=== PATIENT | female | born 1985 | race Caucasian/White ===

== ENCOUNTER 2021-03-22 13:01 | Emergency (ER) | payer MEDICAID, SELFPAY ==
--- NOTE | 2021-03-22 13:02 | ECG_ITS ---
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 Measurements Intervals [place] Rate: 68 P: 52 MS: 128 QRS: 69 QRSD: 75 T: 44 QT: 378 QTc: 403 Interpretive Statements SINUS RHYTHM WITH MARKED SINUS ARRHYTHMIA No previous ECG available for comparison Electronically Signed On 03-22-2021 17:00:54 STATION OPERATOR by Jann Castrejon M.D. [id number]
[2021-03-22 13:11] VITALS: BP 113/64; PULSE 87; RESP 19; TEMP 36.6; O2SAT 95; BMI 24.9
[2021-03-22] MEDS: LORazepam 2 mg/mL INJ 1 mL IVP (13:44)
[2021-03-22 13:46] VITALS: BP 108/71; PULSE 85; RESP 18; O2SAT 97
--- NOTE | 2021-03-22 13:49 | PC.NURSE ---
At approximately 1325, pt has seizure like activity . Pt turns in bed, immediately stiffens, and begins to shake. During activity, pt will pull hand away from RN and squeeze intermittently squeeze RNs hand. Pt stops shaking and immediately asks, Where's Marian? This RN states that Marian is not here and pt begins to cry. ERP Mu notified of event and comes to bedside to assess pt.
[2021-03-22 13:53] LABS: Eosinophils # 0.1 10^3/uL (0.0-0.8); Hematocrit 35.7 % (37.0-47.0); Lymphocytes # 1.4 10^3/uL (0.8-4.8); Mean Corpuscular Volume 90.6 fl (81-99); Monocytes # 0.3 10^3/uL (0.2-0.9); Nucleated Red Blood Cells % 0 %; Red Blood Count 3.94 10^6/uL (4.1-5.3)
--- NOTE | 2021-03-22 13:56 | PC.PHAR ---
pt is from [facility]-medications entered are from the pts mar from [facility]
[2021-03-22 14:26] VITALS: BP 94/59; PULSE 81; RESP 16; O2SAT 95
[2021-03-22 14:38] LABS: Basophils % 0.5 %; Eosinophils % 3.5 %; Hemoglobin 11.7 g/dL (11.5-15.3); Lymphocytes % 36.1 %; Mean Corpuscular HGB Conc 32.8 g/dL (30.0-36.0); Mean Corpuscular Hemoglobin 29.7 pg (28.0-34.0); Mean Platelet Volume 11.7 fL (7.4-10.4); Monocytes % 7.8 %; Neutrophils # 2.08 10^3/uL (1.8-7.7); Neutrophils % 52.1 %; Platelet Count 136 10^3/cmm (130-400); Red Cell Distribution Width 13.5 % (12.1-15.1)
[2021-03-22 14:39] LABS: Slide Review Slide Review Perform
[2021-03-22 14:47] LABS: Alanine Aminotransferase 77 U/L (0-33); Albumin Level 3.7 g/dL (3.5-5.2); Alkaline Phosphatase 142 IU/L (35-105); Anion Gap 16.3 (5-19); Aspartate Amino Transferase 76 U/L (0-32); Blood Urea Nitrogen 14 mg/dL (6-20); Calcium 8.4 mg/dL (8.5-10.5); Carbon Dioxide 21 mmol/L (22-29); Chloride 105 mmol/L (98-107); Globulin 2.6 g/dL (1.3-4.6); Glomerular Filtration Rate 139.6 mL/min (90-130); Glucose 79 mg/dL (65-115); Lipase 17 U/L (13-60); Osmolality Calculated 285 mOsm/kg (285-295); Potassium 4.3 mmol/L (3.5-5.1); Sodium 138 mmol/L (136-145); Total Bilirubin 0.2 mg/dL (0.15-1.2); Total Protein 6.3 g/dL (6.6-8.7)
--- NOTE | 2021-03-22 14:51 | W.ED.GENADLT ---
HPI - General Adult General: Chief complaint: Seizure Stated complaint: seizures Time Seen by Provider: 03/22/21 13:02 History of Present Illness: HPI narrative: HPI: [35]yo patient w/ hx of seizure on keppra, BIBA from [facility] to the ED with with multiple episodes of seizures this AM with posticteral confusion. The incident was witnessed at rehab facility at which point EMS was called. En route, patient had another episode of tonic clonic movement. HDS without any signs of focal neurological deficits. On arrival, the patient is AAOx3, GCS of 15 and answering all questions. The patient denies any associated chest pain, shortness of breath, palpitations, or any focal pain in the arms and legs. Patients takes keppra daily. Onset: 2 hrs ago Duration: x3 episode Location: home Severity: moderate Review of Systems Narrative: Constitutional: No fever, no chills. HEENT: No vision changes CV: No chest pain, no palpitations PULM: No productive cough, no dyspnea. GI: No abdominal pain, no N/V/D. : No Dysuria MSKEL: No muscle pain SKIN: No new rashes, no lesions. NEURO: No headache, no focal weakness. + 1 episode of seizure HEME: No visible bruises PSYCH: Normal mood Physical Exam Narrative: EXAM NARRATIVE: Head: Atraumatic Eyes: PERRL, conjunctiva without injection, eyes tracking ENT: Mucous membrane moist NECK: Supple without lymphadenopathy LUNGS: LCTAB CV: RRR ABDOMEN: Soft, nontender in all quadrants, no guarding or rebound tenderness, no CVA or flank tenderness bilaterally EXTREMITY: Normal ROM SKIN: No rash or erythema NEURO: CN II-XII tested and intact. Sensation intact to sharp/dull differentiation in all extremities. Motor: Normal tone and bulk. No abnormal movements appreciated. No pronator drift. Strength tested and 5/5 in bilateral wrist flexion/extension, elbow flexion/extension, shoulder abduction, straight leg raise, knee flexion/extension, ankle dorsiflexion/plantarflexion. Patient ambulates with a steady gait. Coordination: Finger to nose and heel to albert testing intact bilaterally. Reflexes intact in the ankles, knees, and elbows bilaterally PSYCH: Cooperative mood and affect Course Vital Signs: Vital signs: Vital Signs Temperature 97.9 F 03/22/21 13:11 Pulse Rate 81 03/22/21 14:26 Respiratory Rate 16 03/22/21 14:26 Blood Pressure 94/59 03/22/21 14:26 Pulse Oximetry 95 03/22/21 14:26 MDM - General Adult MDM Narrative: Medical decision making narrative: [35]yo patient w/ known hx of seizure on keppra BIBA after epsiodes of seizure earlier today. Back to baseline on arrival, AAOX3 with non-focal neuro exam. HDS. Exam revealed no focal trauma/deformity/bruises.The episode of seizure was witnessed and without any trauma/injury to the head. No immunosuppression hx and without preceding fever. No history of alcohol abuse or suspicion for toxin ingestion. Hx of prior seizure likely breakthrough seizure in the setting of medication change/non-compliance. H No lips/tongue lacerations. No visible bowel/bladder incontinence Airway protected. No drooling. Sats > 95%. Unlikely to be stroke, neurogenic syncope, acute delirium, intracranial tumor/mass, intracranial bleed, SAH/subdural hematoma/epidural hematoma, meningitis, or intracranial abscess, or from alcohol withdrawal. Workup: CBC, BMP, Magnesium, EKG, HCG CT head (after seizure witnessed in the ED) EMS: 2mg of versed IV ED Interventions: 1g of keppra, PO challenge, serial reassessment EKG: No e/o STEMI. No evidence of Brugada?s sign, delta wave, epsilon wave, significantly prolonged QTc, or malignant arrhythmia. Lab findings: Electrolytes including K and Mg wnl. [6:30pm] On reassessment, patient back to baseline. In the ED, the patient received 1g of keppra in the ED. No other witnessed episodes of seizure while the patient was observed in the ED. Repeat neuro exam is non-focal. Patient tolerated PO in the ED and was able to ambulate without difficulties. 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 Disposition: Discharge. Patient is given instruction for follow-up with PCP and Neurology in the next 24-48 hours. Given seizure precautions including no driving, swimming, or bathing until the patient is fully evaluated by specialists. Lab Data: Labs: Lab Results 03/22/21 03/22/21 03/22/21 13:30 13:30 13:30 WBC 4.0 10^3/uL 10^3/ uL (4.0-10.0) RBC 3.94 10^6/uL L 10 ^6/uL (4.1-5.3) Hgb 11.7 g/dL g/dL (11.5-15.3) Hct 35.7 % L % (37.0-47.0) MCV 90.6 fl fl (81-99) MCH 29.7 pg pg (28.0-34.0) MCHC 32.8 g/dL g/dL (30.0-36.0) RDW 13.5 % % (12.1-15.1) Plt Count 136 10^3/cmm 10^3 /cmm (130-400) MPV 11.7 fL H fL (7.4-10.4) Neut % (Auto) 52.1 % % Lymph % (Auto) 36.1 % % [place] % (Auto) 7.8 % % Eos % (Auto) 3.5 % % Baso % (Auto) 0.5 % % Neut # (Auto) 2.08 10^3/uL 10^3 /uL (1.8-7.7) Lymph # (Auto) 1.4 10^3/uL 10^3/ uL (0.8-4.8) [place] # (Auto) 0.3 10^3/uL 10^3/ uL (0.2-0.9) Eos # (Auto) 0.1 10^3/uL 10^3/ uL (0.0-0.8) Baso # (Auto) 0.0 10^3/uL 10^3/ uL (0.0-0.1) Nucleated RBC % (a uto) 0 % % Nucleated RBCs # 0.0 /100WBC /100W BC Sodium 138 mmol/L mmol/L (136-145) Potassium 4.3 mmol/L mmol/L (3.5-5.1) Chloride 105 mmol/L mmol/L (98-107) Carbon Dioxide 21 mmol/L L mmol/ L (22-29) Anion Gap 16.3 (5-19) BUN 14 mg/dL mg/dL (6-20) Creatinine 0.5 mg/dL mg/dL (0.5-0.9) GFR Calculation 139.6 mL/min H mL /min (90-130) Glucose 79 mg/dL mg/dL (65-115) Calculated Osmolal ity 285 mOsm/kg mOsm/ kg (285-295) Calcium 8.4 mg/dL L mg/dL (8.5-10.5) Total Bilirubin 0.2 mg/dL mg/dL (0.15-1.2) AST 76 U/L H U/L (0-32) ALT 77 U/L H U/L (0-33) Alkaline Phosphata se 142 IU/L H IU/L (35-105) Total Protein 6.3 g/dL L g/dL (6.6-8.7) Albumin 3.7 g/dL g/dL (3.5-5.2) Globulin 2.6 g/dL g/dL (1.3-4.6) Lipase 17 U/L U/L (13-60) Prolactin Urine Color Urine Appearance Urine pH Ur Specific Gravit y Urine Protein Urine Glucose (UA) Urine Ketones Urine Blood Urine Nitrate Urine Bilirubin Urine Urobilinogen Ur Leukocyte Shayna ase Urine HCG, Qual Negative (Negative) 03/22/21 03/22/21 13:30 15:27 WBC RBC Hgb Hct MCV MCH MCHC RDW Plt Count MPV Neut % (Auto) Lymph % (Auto) [place] % (Auto) Eos % (Auto) Baso % (Auto) Neut # (Auto) Lymph # (Auto) [place] # (Auto) Eos # (Auto) Baso # (Auto) Nucleated RBC % (a uto) Nucleated RBCs # Sodium Potassium Chloride Carbon Dioxide Anion Gap BUN Creatinine GFR Calculation Glucose Calculated Osmolal ity Calcium Total Bilirubin AST ALT Alkaline Phosphata se Total Protein Albumin Globulin Lipase Prolactin 24.24 ng/mL H ng/ mL (4.8-23.3) Urine Color Straw (Yellow) Urine Appearance Clear (CLEAR) Urine pH 7 (5-7) Ur Specific Gravit y 1.005 (1.005-1.030) Urine Protein Neg (Negative) Urine Glucose (UA) Norm (Normal) Urine Ketones Negative (Negative) Urine Blood Neg (Negative) Urine Nitrate Negative (Negative) Urine Bilirubin Neg (Negative) Urine Urobilinogen Norm mg/dL mg/dL (Negative) Ur Leukocyte Shayna ase Negative (Negative) Urine HCG, Qual Imaging Data^: Other Imaging: Radiologist's impression: [id number] [place], [place] [id number] Scan ReportSigned Patient: Norma Andrade #: [id number]: 1985Acct#:[id number]/Sex: 35 / FADM Date: 03/22/21Loc: ERRoom/Bed:Attending Dr: Ordering Provider/Ordering MD: Evita Dunn MD Date of Service: 03/22/21 Procedure(s): CT head wo con* [id number] Accession Number(s): [id number] Report Number: [id number] PROCEDURE INFORMATION: Exam: CT Head Without Contrast Exam date and time: 03/22/2021 3:45 PM Age: 35 years old Clinical indication: Condition or disease; Convulsions or seizures; Additional info: Eval brain bleed TECHNIQUE: Imaging protocol: Computed tomography of the head without contrast. Radiation optimization: All CT scans at this facility use at least one of these dose optimization techniques: automated exposure control; mA and/or kV adjustment per patient size (includes targeted exams where dose is matched to clinical indication); or iterative reconstruction. COMPARISON: No relevant prior studies available. RADIATION DOSE METRICS: Total DLP (mGy-cm): 862.81 FINDINGS: Brain: Normal. No hemorrhage. Unremarkable white matter. No mass effect. Cerebral ventricles: No ventriculomegaly. Paranasal sinuses: Visualized sinuses are unremarkable. No fluid levels. Mastoid air cells: Visualized mastoid air cells are well aerated. Bones/joints: Unremarkable. No acute fracture. Soft tissues: Unremarkable. CT/CT head wo con* [id number] IMPRESSION: No acute intracranial abnormality. Dictated By:Farhan Feldman DOSigned By:Farhan Feldman DOSigned Date/Time:03/22/21 1659 Discharge Plan Discharge Patient Disposition: Home Clinical Impression: Seizure Condition: Stable Prescriptions: No Action doxepin 50 mg Capsule 50 mg PO BEDTIME PRN (Reason: Sleep) RF: 0 clonidine HCl 0.1 mg Tablet 0.1 mg PO BEDTIME@21 PRN (Reason: Sleep) RF: 0 Tylenol Ex Str Rapid Release 500 mg Tablet 1,000 mg PO Q4H PRN (Reason: Pain) RF: 0 lamotrigine 25 mg Tablet 25 mg PO BID@ RF: 0 baclofen 10 mg Tablet 10 mg PO TID PRN (Reason: Muscle Spasm) RF: 0 mirtazapine 30 mg Tablet 30 mg PO BEDTIME@ RF: 0 ibuprofen 200 mg Tablet 400 mg PO Q4H PRN (Reason: Pain) RF: 0 levetiracetam 750 mg Tablet 750 mg PO BID@ RF: 0 Discharge Orders: Discharge ED (Routine); Ordered 03/22/21 Ordered By: Evita Dunn Discharge Diet: Advance as tolerated Discharge Activity: Resume usual activity Patient Instructions: Epilepsy (ED) Activity Restrictions/Additional Instructions: Please come back to the emergency room for any more breakthrough episodes of seizure. Come back if any weakness in her arms, drooling, difficulty speaking, any neurological symptoms. Please do not swim bathe or drive a vehicle unattended. Coding Level of Care Code ED Electrical Manufacturing Technician for Julian Saucedo
[2021-03-22] MEDS: ketorolac 30 mg/mL INJ IVP (15:23)
[2021-03-22] MEDS: acetaminophen 500 mg Tablet 1000 MG PO (15:23)
[2021-03-22 15:32] LABS: Prolactin 24.24 ng/mL (4.8-23.3)
--- NOTE | 2021-03-22 15:45 | CTR_ITS ---
PROCEDURE INFORMATION: Exam: CT Head Without Contrast Exam date and time: 03/22/2021 3:45 PM Age: 35 years old Clinical indication: Condition or disease; Convulsions or seizures; Additional info: Eval brain bleed TECHNIQUE: Imaging protocol: Computed tomography of the head without contrast. Radiation optimization: All CT scans at this facility use at least one of these dose optimization techniques: automated exposure control; mA and/or kV adjustment per patient size (includes targeted exams where dose is matched to clinical indication); or iterative reconstruction. COMPARISON: No relevant prior studies available. RADIATION DOSE METRICS: Total DLP (mGy-cm): 862.81 FINDINGS: Brain: Normal. No hemorrhage. Unremarkable white matter. No mass effect. Cerebral ventricles: No ventriculomegaly. Paranasal sinuses: Visualized sinuses are unremarkable. No fluid levels. Mastoid air cells: Visualized mastoid air cells are well aerated. Bones/joints: Unremarkable. No acute fracture. Soft tissues: Unremarkable. CT/CT head wo con* [id number] IMPRESSION: No acute intracranial abnormality.
[2021-03-22 15:46] LABS: Add Urine Microscopic? NO; Charge for UA Resulting for Rev
[2021-03-22 16:28] LABS: Bilirubin Urine Neg (Negative); Blood Urine Neg (Negative); Glucose Urine UA Norm (Normal); Ketones Urine Negative (Negative); Leukocyte Esterase Urine Negative (Negative); Nitrate Urine Negative (Negative); Protein Urine Neg (Negative); Specific Gravity, Urine 1.005 (1.005-1.030); Urine Appearance Clear (CLEAR); Urine Color Straw (Yellow); Urobilinogen Urine Norm (Negative); pH Urine 7 (5-7)
--- NOTE | 2021-03-23 09:19 | DCPLANNER ---
multimedia services manager had message to schedule a follow up appointment for patient with Dr. Robbins. multimedia services manager emailed patients information to the neurology clinic. Patients information will be printed and reviewed. Clinic will call patient with appointment information.
--- NOTE | 2021-03-25 07:25 | DCPLANNER ---
Addendum entered by Lesil Delvalle 05/20/21 15:16: Patient had a follow up appointment scheduled for 05.04.[address] Nguyen office - patient did not attend appointment. Original Note: Patient has a follow up appointment scheduled for Monday, May 04, 2020 at 10:[address] Robbins. Clinic will call patient with appointment information.
== END 2021-03-22 18:59 | disposition home or self-care (01) ==
PROVIDERS: Emergency Provider Emergency Medicine
DX: R56.9 Unspecified convulsions (principal)
CPT/HCPCS: 70450; 80053; 81003; 81025; 83690; 84146; 85025; 93005; 96365; 96375; 99284; J1885; J1953; J2060

== ENCOUNTER 2021-03-24 18:51 | Emergency (ER) | payer MEDICAID, SELFPAY ==
--- NOTE | 2021-03-24 19:02 | W.ED.SEIZURE ---
HPI - Seizure General: Chief Complaint: Seizure Stated Complaint: SEIZURES Time Seen by Provider: 03/24/21 19:02 Source: EMS Mode of arrival: EMS Limitations: altered mental status History of Present Illness: HPI Narrative: Ms. Andrade is a 35-year-old lady with reported history of seizures who presents to the emergency department due to seizure activity. She is currently staying at [facility] and gets her antiepileptic medications prescribed by [facility] behavioral health. History is somewhat limited by patient's postictal status. She reportedly has a an appointment with neurology on May 04 however prior evaluation of seizures is somewhat unclear. She has reportedly had multiple witnessed tonic-clonic seizures lasting approximately 30 seconds each today. She did lose continence of urine. This was preceded by her walking to the nurses desk and reporting an ill feeling. She was seen on the for similar episodes and at that time received a Keppra load. Other specific changes in health, exacerbating, or alleviating factors are not identified or available. Seizure History: Yes Review of Systems General: Reports: ROS unobtainable due to mental status Physical Exam Narrative: EXAM NARRATIVE: GENERAL/CONSTITUTIONAL -mildly ill-appearing. Postictal Eyes - PERRL, no conjunctival injection ENMT - Atraumatic external nose and ears. Moist mucous membranes NECK - supple. trachea midline CARDIOVASCULAR -tachycardic rate and regular rhythm. RESPIRATORY -clear to auscultation bilaterally. ABDOMEN/GI - Nontender/Nondistended. MSK - Extremities without obvious deformity or tenderness to palpation SKIN - Warm, Dry NEURO -postictal. Appears to move all extremities. Procedures EJ/Peripheral Line Arm R: Time Out Performed: No (Not indicated for peripheral IV insertion) Skin Cleansed in Sterile Fashion: Yes (Standard precautions for peripheral IV insertion) Size (gauge): 18 IV Secured and Dressing Applied: Yes Patient Tolerated Procedure: well Additional Comments: Ultrasound-guided Course ED course: - Patient was seen and evaluated by me at bedside - Patient placed on cardiac monitors, IV access obtained - Initial evaluation notable for postictal as noted above - Labs notable for no leukocytosis. Normal hemoglobin. Metabolic panel without acute derangement to explain patient's symptoms, mild transaminitis of unclear etiology. The prolactin level is mildly elevated. - Patient had CT head performed on 03/22/2021. I have reviewed this. There is nothing in clinical reported history that leads me to believe that repeat imaging is warranted on this patient at this time. - Upon serial reexamination after treatment the patient was improved. She was ambulatory and talkative without recurrence of seizures. She tolerated p.o. intake. - I did receive outside records from [facility], she had a hospitalization recently. It appears at that time she had video EEG with episodes that did not correlate with EEG findings. However, given elevated prolactin, she may still have combination of both epileptiform and nonepileptiform events. - Based on patient history, evaluation, labs, and imaging as interpreted the most likely cause of the patient's condition is seizure of unclear etiology. -I did discuss the case with neurology on-call, unfortunately at that time or medication list was not accurate, she initially was reported on JUN to be taking 1000 mg once daily of Keppra. Neurology recommended increasing this to 1500. However, clarification with the patient's facility is that she takes 1000 mg twice daily. She likely needs up titration further however in review of recommendations I believe that a 500 mg increase per week is appropriate, as such I will write the patient for prescription for 500 mg with instructions to take 1 g in the morning and 1500 mg at night. She does have a appointment with neurology scheduled. - The results of ED evaluation were discussed with the patient including prescriptions and/or symptomatic cares (if applicable) including appropriate and responsible use, followup plan, and return precautions. The patient verbalized understanding and felt safe for discharge. - Patient discharged in satisfactory condition. Vital Signs: Vital signs: Vital Signs Temperature 97.1 F L 03/24/21 22:04 Pulse Rate 84 03/25/21 01:10 Respiratory Rate 18 03/25/21 00:25 Blood Pressure 112/74 03/25/21 00:25 Pulse Oximetry 97 03/25/21 00:25 MDM - Seizure Medical Records: Attestation: I reviewed the patient's medical records. Lab Data: Attestation: I reviewed the patient's lab results. Labs: Lab Results 03/24/21 03/24/21 03/24/21 19:18 19:18 19:18 WBC 5.1 10^3/uL 10^3/ uL (4.0-10.0) RBC 4.06 10^6/uL L 10 ^6/uL (4.1-5.3) Hgb 12.1 g/dL g/dL (11.5-15.3) Hct 36.6 % L % (37.0-47.0) MCV 90.1 fl fl (81-99) MCH 29.8 pg pg (28.0-34.0) MCHC 33.1 g/dL g/dL (30.0-36.0) RDW 13.3 % % (12.1-15.1) Plt Count 154 10^3/cmm 10^3 /cmm (130-400) MPV 12.0 fL H fL (7.4-10.4) Neut % (Auto) 42.4 % % Lymph % (Auto) 44.1 % % [place] % (Auto) 7.6 % % Eos % (Auto) 5.1 % % Baso % (Auto) 0.4 % % Neut # (Auto) 2.16 10^3/uL 10^3 /uL (1.8-7.7) Lymph # (Auto) 2.3 10^3/uL 10^3/ uL (0.8-4.8) [place] # (Auto) 0.4 10^3/uL 10^3/ uL (0.2-0.9) Eos # (Auto) 0.3 10^3/uL 10^3/ uL (0.0-0.8) Baso # (Auto) 0.0 10^3/uL 10^3/ uL (0.0-0.1) Nucleated RBC % (a uto) 0 % % Nucleated RBCs # 0.0 /100WBC /100W BC Specimen Type Sample Site ABG pH ABG pCO2 ABG pO2 ABG HCO3 ABG Base Excess Jorge Test Hematocrit O2 Delivery Device Instructional Coordinator ID Sodium 138 mmol/L mmol/L (136-145) Potassium 4.2 mmol/L mmol/L (3.5-5.1) Chloride 103 mmol/L mmol/L (98-107) Carbon Dioxide 23 mmol/L mmol/L (22-29) Anion Gap 16.2 (5-19) BUN 13 mg/dL mg/dL (6-20) Creatinine 0.7 mg/dL mg/dL (0.5-0.9) GFR Calculation 94.7 mL/min mL/mi n (90-130) Glucose 82 mg/dL mg/dL (65-115) Calculated Osmolal ity 285 mOsm/kg mOsm/ kg (285-295) Calcium 8.4 mg/dL L mg/dL (8.5-10.5) Magnesium 1.5 mg/dL L mg/dL (1.7-2.3) Total Bilirubin 0.2 mg/dL mg/dL (0.15-1.2) AST 47 U/L H U/L (0-32) ALT 63 U/L H U/L (0-33) Alkaline Phosphata se 138 IU/L H IU/L (35-105) Total Protein 6.8 g/dL g/dL (6.6-8.7) Albumin 3.8 g/dL g/dL (3.5-5.2) Globulin 3.0 g/dL g/dL (1.3-4.6) TSH 6.33 uIU/mL H uIU /mL (0.27-4.20) Free T4 Prolactin 35.45 ng/mL H ng/ mL (4.8-23.3) HCG, Qual Urine Color Urine Appearance Urine pH Ur Specific Gravit y Urine Protein Urine Glucose (UA) Urine Ketones Urine Blood Urine Nitrate Urine Bilirubin Urine Urobilinogen Ur Leukocyte Shayna ase Salicylates < 0.3 mg/dL L mg/ dL (3-10) Urine Opiates Scre en Acetaminophen < 5.0 ug/mL L ug/ mL (10-30) Ur Barbiturates Sc reen Ur Phencyclidine S crn Ur Amphetamines Sc reen U Benzodiazepines Scrn Urine Cocaine Scre en U Marijuana (THC) Screen Ethyl Alcohol < 10 mg/dL mg/dL (0-10) 03/24/21 03/24/21 03/24/21 19:18 19:38 21:30 WBC RBC Hgb Hct MCV MCH MCHC RDW Plt Count MPV Neut % (Auto) Lymph % (Auto) [place] % (Auto) Eos % (Auto) Baso % (Auto) Neut # (Auto) Lymph # (Auto) [place] # (Auto) Eos # (Auto) Baso # (Auto) Nucleated RBC % (a uto) Nucleated RBCs # Specimen Type Arterial Sample Site Radial, right ABG pH 7.36 (7.35-7.45) ABG pCO2 46.4 mmHg H mmHg (35-45) ABG pO2 54.5 mmHg L mmHg (80.0-100.0) ABG HCO3 26.0 mmol/L mmol/ L (22-26) ABG Base Excess 0.2 mmol/L mmol/L (-2.0-2.0) Jorge Test Pos Hematocrit 35.1 % L % (37-47) O2 Delivery Device Room air Instructional Coordinator ID Buttr Sodium Potassium Chloride Carbon Dioxide Anion Gap BUN Creatinine GFR Calculation Glucose Calculated Osmolal ity Calcium Magnesium Total Bilirubin AST ALT Alkaline Phosphata se Total Protein Albumin Globulin TSH Free T4 0.90 ng/dL ng/dL (0.82-1.77) Prolactin HCG, Qual Negative (Negative) Urine Color Urine Appearance Urine pH Ur Specific Gravit y Urine Protein Urine Glucose (UA) Urine Ketones Urine Blood Urine Nitrate Urine Bilirubin Urine Urobilinogen Ur Leukocyte Shayna ase Salicylates Urine Opiates Scre en Acetaminophen Ur Barbiturates Sc reen Ur Phencyclidine S crn Ur Amphetamines Sc reen U Benzodiazepines Scrn Urine Cocaine Scre en U Marijuana (THC) Screen Ethyl Alcohol 03/24/21 03/24/21 21:30 21:30 WBC RBC Hgb Hct MCV MCH MCHC RDW Plt Count MPV Neut % (Auto) Lymph % (Auto) [place] % (Auto) Eos % (Auto) Baso % (Auto) Neut # (Auto) Lymph # (Auto) [place] # (Auto) Eos # (Auto) Baso # (Auto) Nucleated RBC % (a uto) Nucleated RBCs # Specimen Type Sample Site ABG pH ABG pCO2 ABG pO2 ABG HCO3 ABG Base Excess Jorge Test Hematocrit O2 Delivery Device Instructional Coordinator ID Sodium Potassium Chloride Carbon Dioxide Anion Gap BUN Creatinine GFR Calculation Glucose Calculated Osmolal ity Calcium Magnesium Total Bilirubin AST ALT Alkaline Phosphata se Total Protein Albumin Globulin TSH Free T4 Prolactin HCG, Qual Urine Color Yellow (Yellow) Urine Appearance Clear (CLEAR) Urine pH 6 (5-7) Ur Specific Gravit y 1.015 (1.005-1.030) Urine Protein Neg (Negative) Urine Glucose (UA) Norm (Normal) Urine Ketones Negative (Negative) Urine Blood Neg (Negative) Urine Nitrate Negative (Negative) Urine Bilirubin Neg (Negative) Urine Urobilinogen Norm mg/dL mg/dL (Negative) Ur Leukocyte Shayan ase Negative (Negative) Salicylates Urine Opiates Scre en Negative ng/mL ng /mL (Negative) Acetaminophen Ur Barbiturates Sc reen Negative ng/mL ng /mL (Negative) Ur Phencyclidine S crn Negative ng/mL ng /mL (Negative) Ur Amphetamines Sc reen Negative ng/mL ng /mL (Negative) U Benzodiazepines Scrn Negative ng/mL ng /mL (Negative) Urine Cocaine Scre en Negative ng/mL ng /mL (Negative) U Marijuana (THC) Screen Negative ng/mL ng /mL (Negative) Ethyl Alcohol EKG Data^: EKG 1: Attestation: I personally reviewed and interpreted this EKG as follows: EKG interpretation date: 03/24/21 EKG interpretation time: 19:45 Interpretation: Twelve-lead EKG shows a regular rhythm at a rate of 101. MN interval 128, QRS duration 80, QTc 406. Normal axis. Interpretation: Sinus tachycardia. Discharge Plan Discharge Patient Disposition: Home Clinical Impression: Seizure Condition: Stable Prescriptions: New Keppra 500 mg tablet 500 mg PO .qhs Qty: 60 RF: 0 Discontinued levetiracetam 750 mg Tablet 750 mg PO BID@ RF: 0 No Action doxepin 50 mg Capsule 50 mg PO BEDTIME PRN (Reason: Sleep) RF: 0 clonidine HCl 0.1 mg Tablet 0.1 mg PO BEDTIME@21 PRN (Reason: Sleep) RF: 0 Tylenol Ex Str Rapid Release 500 mg Tablet 1,000 mg PO Q4H PRN (Reason: Pain) RF: 0 lamotrigine 25 mg Tablet 25 mg PO BID@ RF: 0 baclofen 10 mg Tablet 10 mg PO TID PRN (Reason: Muscle Spasm) RF: 0 mirtazapine 30 mg Tablet 30 mg PO BEDTIME@21 RF: 0 ibuprofen 200 mg Tablet 400 mg PO Q4H PRN (Reason: Pain) RF: 0 Discharge Orders: Discharge ED (Routine); Ordered 03/25/21 Ordered By: Silvio Mejia Discharge Diet: Usual diet Discharge Activity: Limit activity as instructed Patient Instructions: Epilepsy (ED), Recurrent Seizures in Adults (ED) Activity Restrictions/Additional Instructions: Thank you for visiting the emergency department. You were seen and evaluated for seizure. The exact cause of your seizures is unclear. However, based on history you likely need an increase in your Keppra. Per turning leaf you currently take 1000 mg twice daily, please change this to 1000 mg in the morning and 1500 mg at night. Please follow-up with your primary care provider. Please follow-up with neurology as scheduled. Return to the emergency department for worsening symptoms, recurrent seizures, or anything else that you are concerned about and feel needs emergency department evaluation. Please follow all typical seizure precautions including avoiding driving, taking baths, swimming, cooking over open flames, operating machinery, climbing tall objects, or anything else that would put you at risk if you were to have another seizure. Coding Level of Care Code ED Embroidery Cutter for Julian Saucedo
--- NOTE | 2021-03-24 19:03 | ECG_ITS ---
[facility] Test Date: 2021-03-24 Pat Name: Cristina Andrade Department: Room: Gender: Female Videotape Recording Engineer: : [id number] Requested By: Alexandre Peterson Order Number: [id number] E Torre MD: Isabel Berkowitz M.D. Measurements Intervals Stuart Rate: 101 P: 64 WV: 128 QRS: 71 QRSD: 80 T: 55 QT: 348 QTc: 451 Interpretive Statements SINUS TACHYCARDIA ABNORMAL RHYTHM ECG Compared to ECG 03/22/2021 13:28:52 Sinus rhythm no longer present Sinus arrhythmia no longer present Electronically Signed On 03-25-2021 4:17:38 SPORTS BOOK WRITER by Isabel Berkowitz M.D. [id number]
[2021-03-24 19:31] LABS: Basophils % 0.4 %; Eosinophils # 0.3 10^3/uL (0.0-0.8); Eosinophils % 5.1 %; Hematocrit 36.6 % (37.0-47.0); Hemoglobin 12.1 g/dL (11.5-15.3); Lymphocytes # 2.3 10^3/uL (0.8-4.8); Lymphocytes % 44.1 %; Mean Corpuscular HGB Conc 33.1 g/dL (30.0-36.0); Mean Corpuscular Hemoglobin 29.8 pg (28.0-34.0); Mean Corpuscular Volume 90.1 fl (81-99); Monocytes # 0.4 10^3/uL (0.2-0.9); Monocytes % 7.6 %; Neutrophils # 2.16 10^3/uL (1.8-7.7); Neutrophils % 42.4 %; Nucleated Red Blood Cells % 0 %; Platelet Count 154 10^3/cmm (130-400); Red Blood Count 4.06 10^6/uL (4.1-5.3); Red Cell Distribution Width 13.3 % (12.1-15.1); White Blood Count 5.1 10^3/uL (4.0-10.0)
[2021-03-24] MEDS: LORazepam 2 mg/mL INJ 1 mL 1 MG IVP (19:45)
[2021-03-24] MEDS: metoclopramide 5 mg/mL SDV 2 mL 10 MG IVP ×2 (20:00→21:57)
[2021-03-24 20:03] LABS: Acetaminophen < 5.0 ug/mL (10-30); Alanine Aminotransferase 63 U/L (0-33); Albumin Level 3.8 g/dL (3.5-5.2); Alcohol Level < 10 mg/dL (0-10); Alkaline Phosphatase 138 IU/L (35-105); Anion Gap 16.2 (5-19); Aspartate Amino Transferase 47 U/L (0-32); Blood Urea Nitrogen 13 mg/dL (6-20); Calcium 8.4 mg/dL (8.5-10.5); Carbon Dioxide 23 mmol/L (22-29); Chloride 103 mmol/L (98-107); Glomerular Filtration Rate 94.7 mL/min (90-130); Glucose 82 mg/dL (65-115); Magnesium 1.5 mg/dL (1.7-2.3); Osmolality Calculated 285 mOsm/kg (285-295); Potassium 4.2 mmol/L (3.5-5.1); Salicylate < 0.3 mg/dL (3-10); Sodium 138 mmol/L (136-145); Thyroid Stimulating Hormone 6.33 uIU/mL (0.27-4.20); Total Bilirubin 0.2 mg/dL (0.15-1.2); Total Protein 6.8 g/dL (6.6-8.7)
[2021-03-24] MEDS: magnesium sulfate premix 2 GM/50 ML PIGGYBACK IV (20:52)
[2021-03-24 21:52] LABS: HCG Qualitative Urine. Negative (Negative)
[2021-03-24] MEDS: acetaminophen 500 mg Tablet 1000 MG PO (21:58)
[2021-03-24 22:04] VITALS: BP 100/69; PULSE 102; RESP 18; TEMP 36.2; O2SAT 99; BMI 22.6
[2021-03-24] MEDS: sodium chloride 0.9% 1,000 ML 999 ML IV (22:05)
[2021-03-24 22:10] VITALS: BP 102/53; PULSE 92; RESP 15; O2SAT 96
[2021-03-24 22:12] LABS: Prolactin 35.45 ng/mL (4.8-23.3)
[2021-03-24 22:55] VITALS: BP 118/72; PULSE 95; RESP 15; O2SAT 96
[2021-03-24 23:03] LABS: Add Urine Microscopic? NO; Charge for UA Resulting for Rev
[2021-03-24 23:11] LABS: Amphetamines Screen Urine Negative (Negative); Barbiturates Screen Urine Negative (Negative); Benzodiazepines Screen Urine Negative (Negative); Cocaine Screen Urine Negative (Negative); Opiate Screen Urine Negative (Negative); PCP Screen Urine Negative (Negative); THC Screen Urine Negative (Negative)
[2021-03-24 23:12] LABS: Bilirubin Urine Neg (Negative); Blood Urine Neg (Negative); Glucose Urine UA Norm (Normal); Ketones Urine Negative (Negative); Leukocyte Esterase Urine Negative (Negative); Nitrate Urine Negative (Negative); Protein Urine Neg (Negative); Specific Gravity, Urine 1.015 (1.005-1.030); Urine Appearance Clear (CLEAR); Urine Color Yellow (Yellow); Urobilinogen Urine Norm (Negative); pH Urine 6 (5-7)
[2021-03-24 23:55] VITALS: BP 100/69; PULSE 79; RESP 18; O2SAT 97
[2021-03-25 00:25] VITALS: BP 112/74; PULSE 81; RESP 18; O2SAT 97
[2021-03-25 01:10] VITALS: PULSE 84
[2021-03-26 18:25] LABS: ABG PCO2 46.4 mmHg (35-45); ABG PH Result 7.36 (7.35-7.45); Arterial Blood Gas Hematocrit 35.1 % (37-47); Base Excess ABG 0.2 mmol/L (-2.0-2.0); Blood Gas Allen Test Pos; Blood Gas Sample Site Radial, right; Blood Gas Sample Type Arterial; Oxygen Device ROOM AIR; PO2 ABG 54.5 mmHg (80.0-100.0)
== END 2021-03-25 01:30 | disposition home or self-care (01) ==
PROVIDERS: Emergency Provider Emergency Medicine
DX: R56.9 Unspecified convulsions (principal)
CPT/HCPCS: 36600; 80053; 80306; 80307; 81003; 81025; 82803; 83735; 84146; 84439; 84443; 85025; 93005; 96365; 96375; 96376; 99284; J1953; J2060; J2765; J3475; J7030

== ENCOUNTER → 2021-08-04 14:00 | Outpatient (BNVA) | payer MEDICAID, SELFPAY | PROVIDERS: Visit Provider Psychiatry & Neurology Psychiatry | DX: F41.1 Generalized anxiety disorder (principal); F43.12 Post-traumatic stress disorder, chronic; F33.2 Major depressive disorder, recurrent severe without psychotic features; F15.21 Other stimulant dependence, in remission; F11.21 Opioid dependence, in remission; F12.20 Cannabis dependence, uncomplicated | CPT/HCPCS: 99204 ==

== ENCOUNTER → 2021-08-04 14:43 | Outpatient (BNVA) | payer MEDICAID, SELFPAY | PROVIDERS: Visit Provider Psychiatry & Neurology Psychiatry | DX: F11.21 Opioid dependence, in remission (principal) | CPT/HCPCS: 80307 ==

== ENCOUNTER → 2021-08-20 09:49 | Outpatient (BNVA) | payer MEDICAID, SELFPAY | PROVIDERS: Visit Provider Psychiatry & Neurology Psychiatry | DX: F33.2 Major depressive disorder, recurrent severe without psychotic features (principal); F11.21 Opioid dependence, in remission; F41.1 Generalized anxiety disorder; F43.12 Post-traumatic stress disorder, chronic; F15.21 Other stimulant dependence, in remission; F17.210 Nicotine dependence, cigarettes, uncomplicated; F12.20 Cannabis dependence, uncomplicated | CPT/HCPCS: 80307; 99214 ==

== ENCOUNTER → 2021-08-31 14:54 | Outpatient (BNVA) | payer MEDICAID, SELFPAY | PROVIDERS: Visit Provider Counselor Mental Health | DX: F41.1 Generalized anxiety disorder (principal) | CPT/HCPCS: 90832 ==

== ENCOUNTER → 2021-09-14 14:11 | Outpatient (BNVA) | payer MEDICAID, SELFPAY | PROVIDERS: Visit Provider Counselor Mental Health | DX: F41.1 Generalized anxiety disorder (principal) | CPT/HCPCS: 90832 ==

== ENCOUNTER → 2021-09-17 10:18 | Outpatient (BNVA) | payer MEDICAID, SELFPAY | PROVIDERS: Visit Provider Psychiatry & Neurology Psychiatry | DX: F41.1 Generalized anxiety disorder (principal); F33.2 Major depressive disorder, recurrent severe without psychotic features; F43.12 Post-traumatic stress disorder, chronic; Z79.899 Other long term (current) drug therapy; F17.210 Nicotine dependence, cigarettes, uncomplicated; F12.20 Cannabis dependence, uncomplicated; F11.21 Opioid dependence, in remission; F15.21 Other stimulant dependence, in remission | CPT/HCPCS: 80307; 99214 ==

== ENCOUNTER → 2021-10-12 16:03 | Outpatient (BNVA) | payer MEDICAID, SELFPAY | PROVIDERS: Visit Provider Registered Nurse Neonatal Intensive Care | DX: N39.0 Urinary tract infection, site not specified (principal); R31.9 Hematuria, unspecified | CPT/HCPCS: 81000 ==

== ENCOUNTER → 2021-10-22 10:51 | Outpatient (BNVA) | payer MEDICAID, OTHER, SELFPAY | PROVIDERS: Visit Provider Psychiatry & Neurology Psychiatry | DX: F11.21 Opioid dependence, in remission (principal); F15.21 Other stimulant dependence, in remission; Z79.899 Other long term (current) drug therapy; F17.210 Nicotine dependence, cigarettes, uncomplicated; F12.20 Cannabis dependence, uncomplicated; F33.2 Major depressive disorder, recurrent severe without psychotic features; F43.12 Post-traumatic stress disorder, chronic; F41.1 Generalized anxiety disorder | CPT/HCPCS: 80307 ==

== ENCOUNTER → 2021-12-09 15:23 | Outpatient (BNVA) | payer MEDICAID, SELFPAY | PROVIDERS: Visit Provider Psychiatry & Neurology Psychiatry | DX: F11.21 Opioid dependence, in remission (principal); F15.21 Other stimulant dependence, in remission; Z79.899 Other long term (current) drug therapy; F12.20 Cannabis dependence, uncomplicated; F17.210 Nicotine dependence, cigarettes, uncomplicated; F33.2 Major depressive disorder, recurrent severe without psychotic features; F43.12 Post-traumatic stress disorder, chronic; F41.1 Generalized anxiety disorder | CPT/HCPCS: 80307 ==

== ENCOUNTER → 2022-03-04 11:11 | Outpatient (BNVA) | payer MEDICAID, SELFPAY | PROVIDERS: Visit Provider Psychiatry & Neurology Psychiatry | DX: Z79.899 Other long term (current) drug therapy (principal); F11.21 Opioid dependence, in remission | CPT/HCPCS: 80307 ==

== ENCOUNTER → 2022-06-01 08:30 | Outpatient (BNVA) | payer MEDICAID, SELFPAY | PROVIDERS: Visit Provider Psychiatry & Neurology Psychiatry | DX: F11.21 Opioid dependence, in remission (principal); Z79.899 Other long term (current) drug therapy | CPT/HCPCS: 80307 ==

== ENCOUNTER → 2022-08-16 15:41 | Outpatient (BNVA) | payer MEDICAID, SELFPAY | PROVIDERS: Visit Provider Psychiatry & Neurology Psychiatry | DX: Z79.899 Other long term (current) drug therapy (principal); F11.21 Opioid dependence, in remission; F15.21 Other stimulant dependence, in remission | CPT/HCPCS: 80307 ==

== ENCOUNTER 2022-08-25 15:44 | Emergency (ER) | payer MEDICAID, SELFPAY ==
[2022-08-25 15:59] VITALS: BP 131/93; PULSE 83; RESP 16; TEMP 36.2; O2SAT 98
--- NOTE | 2022-08-25 17:06 | XRR_ITS ---
PROCEDURE INFORMATION: Exam: XR Right Hand Exam date and time: 08/25/2022 5:12 PM Age: 36 years old Clinical indication: Injury or trauma; Dislocation and other: Fall; Right; Middle finger; Additional info: Finger injury TECHNIQUE: Imaging protocol: Radiologic exam of the right hand. Views: 3 or more views. COMPARISON: No relevant prior studies available. FINDINGS: Bones/joints: Third middle phalangeal near complete ulnar direction dislocation relative to the proximal phalanx, negative for fracture. Soft tissues: Normal. XR/XR hand RT min 3V* [id number] IMPRESSION: Third middle phalangeal near complete ulnar direction dislocation relative to the proximal phalanx, negative for fracture.
[2022-08-25] MEDS: HYDROcodone-acetaminophen 7.5-325 mg Tablet 1 TAB PO (18:00)
--- NOTE | 2022-08-25 18:14 | ED_ITS ---
HPI - Extremity Problem General: Chief complaint: Extremity Injury, Upper Stated complaint: right finger possibly broken Time Seen by Provider: 08/25/22 17:27 History of Present Illness: Patient is a 36-year-old female comes to the ED with right finger injury. Patient states she fell and landed on her right hand extended out. It caused a injury to third finger. She has a visible deformity at the PIP joint. She endorses pain and rates it a 10 out of 10. Denies any other injuries. Associated symptoms: Deny chest pain, fever(s) or rash Review of Systems Const: Denies: fever(s), chills or fatigue Eyes: Denies: change in vision or eye discomfort ENMT: Denies: throat pain, odynophagia, nasal discharge or nasal congestion Card: Denies: chest pain, palpitations, edema, swelling of feet/ankles, dyspnea on exertion or orthopnea Resp: Denies: dyspnea, productive cough or non-productive cough GI: Denies: abdominal pain, nausea, vomiting, diarrhea, constipation or hematochezia : Denies: flank pain, dysuria or hematuria Musc: Reports: extremity pain (Right hand third digit) and deformity (Right hand third digit dislocated finger); Denies: neck pain, back pain or extremity swelling Skin/Breast: Denies: rash or new lesions Neuro: Denies: headache(s), numbness in extremities or weakness in extremities PFSH ED PFSH: Medical History Psychiatric care Social History (Updated 03/04/22 @ 10:31 by Alexandre Quinones LPN) Smoking and tobacco status: current every day smoker e-cigarettes E-Cigarette Details: vaporizer device and with nicotine E-cig/vape details: Individual Vape Dispensor - Variable. Quit status (tobacco): has tried quititng Number of times tried to quit tobacco: 1 Second hand smoke exposure: No Smoking risk assessment/counseling performed?: No Alcohol intake: former Desire information about alcohol rehabilitation?: No Counseling given: No Substance/Drug Use: current Substance/Drug use frequency: daily Other substance/drug use details: THC Desire information about substance/drug rehabilitation?: No Counseling given: No Current occupation: [employer] Physical Exam Const: COMMON NORMALS: patient oriented x3 HENMT: COMMON NORMALS: normocephalic HEAD & SCALP: normocephalic MOUTH: Normal oral and palatal mucosa present THROAT: posterior oropharynx normal and uvula midline Neck/C-Spine: COMMON NORMALS: supple GENERAL: Yes normal visual inspection Resp: COMMON NORMALS: normal respiratory effort, No retractions, No use of accessory muscles and clear to auscultation bilaterally AUSCULTATION: clear to auscultation bilaterally Cardio: COMMON NORMALS: regular rate, regular rhythm, S1 normal heart sound present, S2 normal heart sound present, No gallops present (Cardio), No clicks present (Cardio), No murmurs present (Cardio) and Peripheral pulses 2+ throughout RATE: regular rate RHYTHM: regular rhythm HEART SOUNDS: S1 normal heart sound present and S2 normal heart sound present PERIPHERAL PULSES: Peripheral pulses 2+ throughout GI: COMMON NORMALS: Normal to inspection, nondistended, normoactive bowel sounds present, Soft to palpation, non-tender and no masses PALPATION: Yes Soft to palpation : COMMON NORMALS: Yes no CVA tenderness BLADDER/KIDNEY EXAM: Yes no CVA tenderness Back/Pelvis: COMMON NORMALS: no CVA tenderness Extremity: NARRATIVE EXTREMITY EXAM: Right hand?third digit dislocated finger at PIP joint. Neuro: COMMON NORMALS: patient oriented x3 GAIT: Yes Normal gait present Skin: GENERAL SKIN EXAM: dry skin Procedures Nerve Block Nerve Block 1: Time out performed: Yes Local Anesthetic: lidocaine 2% Amount of anesthesia used (mL): 4 Side: right Nerve Blocks: digital (third digit) Procedure Successful: Yes Patient Tolerated Procedure: well Complications: none Orthopedic Joint Reduction Joint #1: Time Out Performed: Yes Side: right Joint Reduction Location: finger (Dislocation of third digit PIP joint) Analgesia: nerve block (Lidocaine 2%) Amount of anesthesic used (mL): 4 Technique used: direct manipulation Post-reduction neuro exam: intact Post-reduction vascular: intact Post Reduction X-Ray Obtained: Yes Post Reduction X-Ray Results: reduced Splint Applied: Yes (Finger splint) Patient Tolerated Procedure: well Course Vital Signs: Vital signs: Vital Signs Temperature 97.2 F L 08/25/22 15:59 Pulse Rate 83 08/25/22 15:59 Respiratory Rate 16 08/25/22 15:59 Blood Pressure 131/93 08/25/22 15:59 Pulse Oximetry 98 08/25/22 15:59 Oxygen Delivery Me thod Room Air 08/25/22 15:59 MDM - Extremity (Nontraumatic) Medical Decision Making Patient is a 36-year-old female comes to the ED with right finger injury. Patient states she fell and landed on her right hand extended out. It caused a injury to third finger. She has a visible deformity at the PIP joint. She end orses pain and rates it a 10 out of 10. Denies any other injuries. Vitals stable. Exam shows dislocated third digit at PIP joint. X-ray of right hand shows dislocation of third digit at PIP joint with no acute fractures noted. Digital block was performed using lidocaine 2% and finger dislocation was manually reduced. Post reduction x-ray of hand showed successful reduction. Patient was put in a finger splint and I placed an order with case management for patient to be referred to Ortho for follow-up on finger dislocation. She was stable for discharge home and sent home with a prescription for ibuprofen 800 mg. Return to ED precautions given. Patient understood and agreed with plan. Lab Data Radiology Impressions Hand X-Ray 08/25/22 18:27 IMPRESSION: Reduction of the previously seen 3rd digit dislocation, negative for fracture. Discharge Plan Discharge Patient Disposition: Home Clinical Impression: Dislocated finger Qualifiers: Encounter type: initial encounter Qualified Code(s): S63.259A - Unspecified dislocation of unspecified finger, initial encounter Condition: Stable Prescriptions: New ibuprofen 800 mg tablet 800 mg PO Q8H PRN (Reason: pain) Qty: 20 0RF No Action amoxicillin-pot clavulanate 875-125 mg tablet 1 tab PO BID 7 Days Qty: 14 0RF buprenorphine-naloxone 8-2 mg tablet, sublingual 2.5 tab sublingual DAILY Qty: 75 2RF doxepin 100 mg capsule 100 mg PO .HS Qty: 30 2RF duloxetine 60 mg capsule,delayed release(DR/EC) 60 mg PO DAILY Qty: 30 2RF hydroxyzine pamoate [Vistaril] 50 mg capsule 50 mg PO QID PRN (Reason: anxiety) Qty: 120 2RF lamotrigine 200 mg tablet 200 mg PO DAILY Qty: 30 2RF Discharge Orders: Discharge ED (Routine); Ordered 08/25/22 Ordered By: Osmar Galvan Discharge Diet: Regular Discharge Activity: Limit activity as instructed Patient Instructions: Finger Dislocation (ED) Activity Restrictions/Additional Instructions: Follow-up with medical provider as directed. Case management contacted in the next several days to set up an appoint with Ortho for follow-up on dislocated finger. Wear finger splint. You can remove finger splint during the day and try a little bit of range of motion exercises and finger. limit activity with left hand until cleared by Ortho. Take medications as prescribed. Return to the ER or your medical provider if condition worsens. Please read and understand discharge instructions. Thank you for choosing [facility] for your healthcare needs today. Please realize this is an emergency room and that we are providing you with a medical screening exam and this may not be complete and all inclusive of all the testing and or work up that you may need to determine your ailment or severity of your illness. It is very important that you follow up as instructed or that you return to the Emergency Department should you have concerns or if your condition changes or worsens in any way. Coding Level of Care Code ED Logistics System Engineer for Julian Saucedo
--- NOTE | 2022-08-25 18:27 | XRR_ITS ---
PROCEDURE INFORMATION: Exam: XR Right Hand Exam date and time: 08/25/2022 6:31 PM Age: 36 years old Clinical indication: Pain; Finger(s); Right; Additional info: Post reduction xray TECHNIQUE: Imaging protocol: Radiologic exam of the right hand. Views: 3 or more views. COMPARISON: CR (UP EX, ) 08/25/2022 5:12 PM FINDINGS: Bones/joints: Reduction of the previously seen 3rd digit dislocation, negative for fracture. Soft tissues: Normal. XR/XR hand RT min 3V* [id number] IMPRESSION: Reduction of the previously seen 3rd digit dislocation, negative for fracture.
[2022-08-25] MEDS: lidocaine 2% INJ 20 mL 10 ML INJECTION (18:34)
--- NOTE | 2022-08-26 12:15 | PC.NURSE ---
Addendum entered by Lesli Delvalle 09/01/22 09:24: Patient had a follow up appointment scheduled with ortho - patient did attend appointment. Addendum entered by Lesli Delvalle 08/30/22 13:41: Patient has a follow up appointment scheduled for Wednesday, August 31, 2022 at 1:[address] Guerrero at ortho. Original Note: Rajesh seen in the ED on 08/25/22. Referred to Ortho by Osmar Galvan. TCM sent message to call patient with an appt.
--- NOTE | 2022-09-02 07:51 | DCPLANNER ---
TCM called patient due to no primary care physician - no answer at this time.
== END 2022-08-25 18:48 | disposition home or self-care (01) ==
PROVIDERS: Emergency Provider Physician Assistant
DX: S63.282A Dislocation of proximal interphalangeal joint of right middle finger, initial encounter (principal); F17.290 Nicotine dependence, other tobacco product, uncomplicated; W19.XXXA Unspecified fall, initial encounter
CPT/HCPCS: 29130; 73130; 99283

== ENCOUNTER 2022-08-31 15:08 | Outpatient (CLI) | payer MEDICAID, SELFPAY | END 2022-08-31 15:09 | disposition home or self-care (01) | LOC: SPT 15:09 | PROVIDERS: Visit Provider Specialist | DX: Z46.89 Encounter for fitting and adjustment of other specified devices (principal); S63.259D Unspecified dislocation of unspecified finger, subsequent encounter; X58.XXXD Exposure to other specified factors, subsequent encounter | CPT/HCPCS: 97760; L3984 ==

== ENCOUNTER → 2022-11-15 15:57 | Outpatient (BNVA) | payer MEDICAID, SELFPAY | PROVIDERS: Visit Provider Psychiatry & Neurology Psychiatry | DX: F11.21 Opioid dependence, in remission (principal); F12.20 Cannabis dependence, uncomplicated; F15.21 Other stimulant dependence, in remission | CPT/HCPCS: 80307 ==

== ENCOUNTER → 2023-03-16 16:14 | Outpatient (BNVA) | payer MEDICAID, SELFPAY | PROVIDERS: Visit Provider Psychiatry & Neurology Psychiatry | DX: F11.21 Opioid dependence, in remission (principal); Z79.899 Other long term (current) drug therapy | CPT/HCPCS: 80307 ==

== ENCOUNTER → 2023-05-26 18:45 | Outpatient (BNVA) | payer MEDICAID, SELFPAY | PROVIDERS: PCP Family Medicine; Visit Provider Emergency Medicine | DX: M25.562 Pain in left knee (principal) | CPT/HCPCS: 73562 ==

== ENCOUNTER → 2023-06-08 16:07 | Outpatient (BNVA) | payer MEDICAID, SELFPAY | PROVIDERS: PCP Family Medicine; Visit Provider Psychiatry & Neurology Psychiatry | DX: F11.21 Opioid dependence, in remission (principal); F12.20 Cannabis dependence, uncomplicated; F15.21 Other stimulant dependence, in remission; Z79.899 Other long term (current) drug therapy | CPT/HCPCS: 80307 ==

== ENCOUNTER → 2023-09-12 13:12 | Outpatient (BNVA) | payer OTHER, SELFPAY | PROVIDERS: PCP Family Medicine; Visit Provider Psychiatry & Neurology Psychiatry | DX: F11.21 Opioid dependence, in remission (principal); Z79.899 Other long term (current) drug therapy; F15.21 Other stimulant dependence, in remission | CPT/HCPCS: 80307 ==

== ENCOUNTER → 2023-10-31 12:07 | Outpatient (BNVA) | payer OTHER, SELFPAY | PROVIDERS: PCP Family Medicine; Visit Provider Psychiatry & Neurology Psychiatry | DX: F11.21 Opioid dependence, in remission (principal); Z79.899 Other long term (current) drug therapy; F15.21 Other stimulant dependence, in remission | CPT/HCPCS: 80307 ==